=== PATIENT | female | born 1990 | race Caucasian/White ===

== ENCOUNTER 2017-09-30 07:06 | Inpatient (IN) | payer OTHER ==
[2017-09-30] MEDS ORDERED: Oxytocin/Normal Saline 30 UNIT/500 ML BAG IV SCH (08:15)
[2017-09-30] MEDS ORDERED: Lidocaine 1% 30 ML SDV INJECT PRN (09:34)
[2017-09-30] MEDS ORDERED: Acetaminophen 325 MG Tab PO PRN (09:34)
[2017-09-30] MEDS ORDERED: Lactated Ringers 500 ML IV ONE (09:34)
[2017-09-30] MEDS ORDERED: Misoprostol 400 MCG (4 X 100 MCG TAB) RECTAL PRN (09:34)
[2017-09-30] MEDS ORDERED: Methylergonovine 0.2 MG/1 ML Amp IM PRN (09:34)
[2017-09-30] MEDS ORDERED: Sodium Chloride 0.9% 10 ML Syringe FLUSH PRN ×2 (09:34→14:19)
[2017-09-30] MEDS ORDERED: Carboprost Tromethamine 250 MCG/1 ML Amp IM PRN (09:34)
[2017-09-30] MEDS ORDERED: Ondansetron 4 MG/2 ML SDV IV PRN (09:34)
[2017-09-30] MEDS: Lactated Ringers 1,000 ML IV SCH ×2 (10:19→13:32)
--- NOTE | 2017-09-30 10:58 | OBOUT ---
DATE: 09/30/2017 DATE AND TIME OF NST: Date: 09/30/2017. Time: 9:06 to 9:26. REASON FOR NST: 1. Intrauterine at 38 weeks, confirmed with 21 and 1/7 week ultrasound. 2. Premature rupture of membranes. 3. Group B strep negative. 4. Rh negative. 5. Impaired glucose tolerance. 6. G2, P1-0-0-1. NST INTERPRETATION: During this time period, heart tone baseline is approximately 145, and there are at least two 15 x 15-beats per minute accelerations, making this strip reactive. It is also noted to be reassuring. Tocometer reveals potential of 5 contractions felt by patient. ASSESSMENT: 1. Nonstress test, reactive and reassuring. 2. Tocometer with contractions. PLAN: Please see H and P for further details. This was done in conjunction, seen and agreed with RUSSELL Ewing. For the H and P, records were called for, reviewed and supplemented by patient history. Review of systems was otherwise reviewed and felt to be noncontributory other than leaking of fluid. Essentially, this is a G2, P1, who had vaginal leaking started about 4:00 a.m., woke her from sleep. Continued leaking, thereafter, described as clear fluid in nature soaking through clothing , associated with contractions that are now increasing in frequency and intensity to the point that they are felt every 2 to 5 minutes apart getting worse and felt in the lower abdomen. She denies any spotting or bleeding. She is GBS negative. She is Rh negative and has received RhoGAM. For further details, please see RUSSELL Ewing notes. At current time of dictation, Pitocin has been called for to be given, however, the OB floor has become very busy and we will start when it is safe to start in this patient. MOD /[id number]
[2017-09-30] MEDS ORDERED: fentaNYL 100 MCG/2 ML SDV ONE (11:53)
[2017-09-30] MEDS ORDERED: EPINEPHrine 1 MG/ML SDV ONE (11:53)
--- NOTE | 2017-09-30 13:04 | PN ---
DATE: 09/30/2017 SUBJECTIVE: The patient is comfortable, status post intrathecal. OBJECTIVE: heart tones are in the 140s range. There are some accelerations seen on the monitoring strip. Tocometer reveals contractions every 2 to 5 minutes, 4 to 5 minutes apart. Vaginal exam reveals her to be 4 cm, 80% effaced, -1 to -2 station, vertex suspected; and bag of water was felt with artificial rupture of membranes done after discussion with the patient, yielding copious amounts of clear fluid. IUPC was placed after that with discussion with the patient. Pitocin is currently at 6 milliunits per minute. ASSESSMENT: Intrauterine at 38 weeks, confirmed with 21 and 1/7-week ultrasound with premature rupture of membranes, suspect forebag rupture as there was gross rupture of membranes with early evaluation and then subsequent artificial rupture of membranes done as above. She is GBS negative and Rh negative with impaired glucose tolerance in a G2, P1-0-0-1, now status post intrathecal with Pitocin augmentation, artificial rupture of membranes, and IUPC placement. PLAN: We will follow, and we use closely increased Pitocin accordingly. Plans were discussed with the patient and her male partner. They understand and agree. [facility] /[id number]
--- NOTE | 2017-09-30 13:24 | PCM.PRNOTE ---
- Free Text/Narrative Note: Requested to provide analgesia to full term patient in severe pain. Upon entering the room, patient is lying on left side complaining of severe abdominal pain and discomfort. Procedure was discussed with patient including adverse outcomes and expectations. Pt consented to analgesia, SAB/IT. Pt placed into a sitting position. Landmarks for SAB/IT were identified and marked. Back was prepped with betadine x3. A sterile, transparent, fenestrated drape was applied. Excess betadine was removed. Using 3 mL of a 1% lidocaine solution, a skin wheel was placed at the L3/L4 interspace. A 24 ga (4 inch) Penc[place] spinal needle was inserted until positive for CSF. Negative for heme or paresthesias. Injected fentanyl 20 mcg, sufentanil 10 mcg, and 10.5 mg of a 0.75% bupivacaine solution with an epi wash. Pt was placed left lateral position for approximately 20 minutes. There were zero complications or adverse outcomes. Will continue to monitor.
--- NOTE | 2017-09-30 13:53 | HP ---
CHIEF COMPLAINT: Contractions and leakage of clear fluid from vagina beginning at 4 a.m. today. HISTORY OF PRESENT ILLNESS: This is a 27-year-old G2, P1-0-0-1, currently at 38 weeks and 0/7 days of her . Contractions started around 4 a.m. this morning that initially were 10 to 15 min apart and are now 5 min apart and have increased in intensity. The patient also observed leakage of clear fluid beginning at 4 a.m. This was enough to soak through multiple sets of clothing. She denies any traces of blood. These symptoms continued during her one-hour drive from [place]. movement has been good. She denies any fevers or chills, nausea, or vomiting, shortness of breath or chest pain, headaches or blurry vision, foul smelling discharge or vaginal bleeding. She reports some nasal congestion and sore throat at night in the last two days. She also reports bilateral upper extremity edema in the last couple of weeks as well as some transient numbness in her left hand that occurred yesterday that she believes is due to this edema . HISTORY: She has had one previous delivery. The baby weight was 3110 g delivered via spontaneous vaginal delivery by Dr. Mcdaniels at [facility] in [facility]. She denies any intrapartum or complications with that delivery . She denies any complications with this . She does report spotting in the first and second trimesters. PAST MEDICAL HISTORY: 1. Dysmenorrhea, treated with oral contraception. She denies any heart, lung, liver, or kidney disease. MEDICATIONS: vitamins. ALLERGIES: No known allergies. PAST SURGICAL HISTORY: Bilateral inguinal hernia repair as a child. FAMILY HISTORY: One grandmother with type 2 diabetes. Denies knowledge of any heart, lung, liver, or kidney disease that run in her family. SOCIAL HISTORY: The patient is here with the father of the baby, Patrick. 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 She has never smoked. She denies use of tobacco, alcohol, or any illicit drug use during this . REVIEW OF SYSTEMS: Pertinent positives and negatives as listed under the HPI. PHYSICAL EXAMINATION: General: Pleasant well-appearing female, who appears stated age. Vital Signs: Blood pressure 114/78, pulse 117 HEENT: Atraumatic. Anicteric sclera. Oropharynx without erythema, tonsils not enlarged. No sinus tenderness. No obvious deformities to external ears. Neck: Supple without adenopathy. No thyromegaly. Heart: Regular rate and rhythm. Lungs: Clear to auscultation bilaterally. Abdomen: Gravid, soft, nontender. Neurological: 2+ patellar reflexes, symmetric. No clonus. Cervical exam: 3 cm dilated, 50% effaced. Vertex suspected, high in pelvis. No bag of fluid appreciated. Extremities: Trace edema in the upper extremities bilaterally. No edema in lower extremities. No erythema or tenderness noted in any extremities. Skin: Warm and dry. TESTING: Blood type O negative, antibody screen positive, rubella immune, syphilis negative, hepatitis B negative, HIV negative, Gonorrhea and Chlamydia negative. TSH normal at 1.28. Hepatitis C negative. Wet prep negative for Trichomonas, clue cells, fungal elements, and budding yeast. One- hour glucose of 172 but passed 3 hour glucose tolerance test, impaired glucose tolerance. GBS negative. monitoring: heart tones tracing at 150 beats per minute at baseline, moderate [id number] variability, accelerations are noted. [place] tracing contractions every 4 to 6 minutes. LABORATORY DATA: CBC today showed hemoglobin at 11.3 and white blood cell at 10.1. ASSESSMENT: 1. 38 weeks intrauterine . 2. Gravid 2, para 1-0-0-1. 3. Blood type O negative, rubella immune, group B Streptococcus negative. 4. Premature rupture of membranes. 5. Impaired glucose tolerance. PLAN: Admit the patient to the Labor and Delivery floor. Start Pitocin for premature rupture of membranes. The patient's questions have been answered and she is in agreement with the above plan. seen and agreed with medical student. [facility] /[id number] [place]
[2017-09-30] MEDS ORDERED: Benzocaine/Menthol 20%-0.5% Spray 56 GM Canister TOP PRN (14:19)
[2017-09-30] MEDS ORDERED: Docusate Sodium 100 MG Cap PO PRN (14:19)
[2017-09-30] MEDS ORDERED: Oxytocin 10 Units/1 ML SDV IM PRN (14:19)
[2017-09-30] MEDS ORDERED: Zolpidem 5 MG Tab PO PRN (14:19)
[2017-09-30] MEDS ORDERED: Simethicone 80 MG Tab.Chew PO PRN (14:19)
[2017-09-30] MEDS: Ibuprofen 800 MG Tab PO PRN (19:50)
[2017-10-01] MEDS: Ibuprofen 800 MG Tab PO PRN ×3 (03:55→21:02)
--- NOTE | 2017-10-01 09:23 | DEL ---
DATE: 09/30/2017 PREOPERATIVE DIAGNOSES: 1. Intrauterine 38 weeks, confirmed with 21 and 1/7 week ultrasound. 2. Premature rupture of membranes, requiring Pitocin augmentation. 3. Group B Streptococcus negative. 4. Rh negative. 5. Impaired glucose tolerance. 6. G2, P1-0-0-1. POSTOPERATIVE DIAGNOSES: 1. Intrauterine 38 weeks, confirmed with 21 and 1/7 week ultrasound- delivered. 2. Premature rupture of membranes, requiring Pitocin augmentation. 3. Group B Streptococcus negative. 4. Rh negative. 5. Impaired glucose tolerance. 6. G2, P1-0-0-1. 7. Second-degree perineal abrasion, very superficial, nonbleeding, non- repaired after discussion with the patient. PROCEDURE PERFORMED: NST, Pitocin augmentation, artificial rupture of membranes, IUPC, and then subsequent spontaneous vaginal delivery on 09/30/2017. PODIATRIC PHYSICIAN: Maria C Temple MS-III. ANESTHESIA/ANALGESIA: The patient did receive an intrathecal in the first stage of labor. ESTIMATED BLOOD LOSS: 200 mL. FINDINGS: Male, scores and weight pending. SUMMARY OF EVENTS: The patient is a 27-year-old, G2, P1-0-0-1, intrauterine at 38 weeks, confirmed with 21 and 1/7 week ultrasound admitted with gross rupture of membranes/premature rupture of membranes. She subsequently underwent Pitocin augmentation, was re-evaluated, and was noted not to have significant cervical change, bulging bag of water was felt, and at that time artificial rupture of membranes done yielding copious amounts of clear fluid. This was after intrathecal was given. IUPC was placed at the same time and Pitocin augmentation was continued. Subsequently, she was found to be complete. I was called to the room, as well as Maria C Temple. We both donned sterile gown and gloves and then patient started pushing with contractions. She was in the second stage of labor. With pushing with contractions, vertex was delivered in EULA presentation, followed by rest of the infant, anterior and posterior shoulders without difficulty. Mouth and nares were suctioned. Cord was doubly clamped and cut. Infant was resuscitated on mother's abdomen, and then was subsequently taken over to the warmer. Then, approximately 10 mL cord blood was obtained for labs. Placenta then delivered with gentle cord traction and fundal massage within 10 minutes. Perineum, vagina and perirectal areas were then examined and noted to have a second-degree perineal superficial abrasion nonbleeding, non-repaired after discussion with the patient. Mother and are currently stable at the time of dictation. [facility] /[id number]
[2017-10-01] MEDS: Prenatal Multivitamin with Calcium/Folic Acid/Iron Tab PO SCH (09:41)
[2017-10-01] MEDS ORDERED: fentaNYL 100 MCG/2 ML SDV ITHECAL ONE (11:34)
[2017-10-01] MEDS ORDERED: EPINEPHrine 1 MG/ML SDV ONE (11:34)
--- NOTE | 2017-10-01 14:08 | PN ---
DATE: 10/01/2017 SUBJECTIVE: Nurses' note that she has been having some chills and body aches; the patient reports this. No fevers are noted; however, the patient describes being exposed to flu through daycare. The patient denies any foul-smelling discharge or pelvic pain. She does note the typical cramping with her . OBJECTIVE: Vital Signs: Temperature 100.1, heart rate 94, blood pressure 115/65, respiratory rate is 14. Lungs: Clear to auscultation bilaterally. No increased work of breathing. Heart: S1 and S2. Regular rate and rhythm. Extremities: No peripheral edema. No calf pain. Abdomen: Soft, nontender, and nondistended. Bowel sounds positive. Firm uterus, -2 below the umbilicus. No significant pain with palpation of the fundus. LABORATORY DATA: White cell count 7.7, hemoglobin 10.6, platelets 209. Pending is an influenza. ASSESSMENT AND PLAN: day #1, mother with milk coming in, currently having chills, no true fever, but has been exposed to influenza. We will order the rapid influenza and follow clinically and closely, thereafter, treat if positive and we will discuss isolation if need be at that time. The patient understands and agrees with the above treatment plan. If the influenza is negative, I suspect it is most likely milk letdown as she has only a minimal runny nose associated with her symptoms, possibly could be a viral illness as well, but we will follow clinically and closely. I did discuss good handwashing and hygiene around her . [facility] /[id number]
[2017-10-01] MEDS: Oseltamivir 75 MG Cap PO SCH ×2 (15:23→21:02)
[2017-10-02 08:22] VITALS: BP 106/71
[2017-10-02] MEDS: Oseltamivir 75 MG Cap PO SCH (09:22)
[2017-10-02] MEDS: Prenatal Multivitamin with Calcium/Folic Acid/Iron Tab PO SCH (09:23)
[2017-10-02] MEDS: Ibuprofen 800 MG Tab PO PRN (09:23)
--- NOTE | 2017-10-02 09:38 | PCM.PNPP ---
- General Info Date of Service: 10/02/17 ( PPD # 2) Functional Status: Reports: Pain Controlled, Tolerating Diet, Ambulating, Urinating - Review of Systems General: Reports: No Symptoms HEENT: Reports: No Symptoms Pulmonary: Reports: No Symptoms Cardiovascular: Reports: No Symptoms Gastrointestinal: Reports: No Symptoms Genitourinary: Reports: No Symptoms Musculoskeletal: Reports: No Symptoms Skin: Reports: No Symptoms Neurological: Reports: No Symptoms Psychiatric: Reports: No Symptoms - General Info Date of Service: 10/02/17 ( PPD # 2) - Patient Data Vital Signs - Most Recent: Last Vital Signs Temp 98.2 F 10/02/17 08:00 Pulse 79 10/02/17 08:00 Resp 16 10/02/17 08:00 BP 106/71 10/02/17 08:00 Pulse Ox 98 10/02/17 08:00 Weight - Most Recent: 181 lb Lab Results - Last 24 Hours: Laboratory Results - last 24 hr 10/01/17 Range/Units 06:08 Blood Type O NEGATIVE Gel Antibody Screen Positive Rhogam Indicated Yes, baby rh pos H Micro Results - Last 24 Hours: Microbiology 10/01/17 13:40 Influenza Type A Antigen Screen - Final Nasopharyngeal Swab - Nare, Right Positive Influenza A Ag Influenza Type B Antigen Screen - Final NEGATIVE INFLUENZA B VIRUS AG Med Orders - Current: Current Medications Acetaminophen (Tylenol) 650 mg PO Q4H PRN PRN Reason: Pain (Mild 1-3) and fever Benzocaine/Menthol (Dermoplast Pain Relief [place]) 0 gm TOP Q4H PRN PRN Reason: Perineal comfort measures Carboprost Tromethamine (Hemabate Ds) 250 mcg IM ASDIRECTED PRN PRN Reason: HEMORRHAGE Docusate Sodium (Colace) 100 mg PO BID PRN PRN Reason: Constipation Last Admin: 10/01/17 09:41 Dose: 100 mg Oxytocin/Sodium Chloride (Pitocin In Ns 30 Unit/500 Ml) 30 unit in 500 mls @ 2 mls/hr IV TITRATE KATTY; 2 MUNITS/MIN PRN Reason: Protocol Last Titration: 09/30/17 16:28 Dose: 0 mls/hr Lactated Ringer's (Ringers, Lactated) 1,000 mls @ 125 mls/hr IV ASDIRECTED KATTY Last Admin: 09/30/17 13:32 Dose: 125 mls/hr Ibuprofen (Motrin) 800 mg PO Q8H PRN PRN Reason: Mild Pain or Fever Last Admin: 10/02/17 09:23 Dose: 800 mg Lidocaine HCl (Xylocaine-Mpf 1%) 10 ml INJECT ASDIRECTED PRN PRN Reason: Perineal Repair Methylergonovine Maleate (Methergine) 0.2 mg IM ASDIRECTED PRN PRN Reason: Hemorrhage Misoprostol (Cytotec) 800 mcg RECTAL ASDIRECTED PRN PRN Reason: Hemorrhage Ondansetron HCl (Zofran) 4 mg IV Q4H PRN PRN Reason: Nausea/Vomiting Last Admin: 09/30/17 11:47 Dose: 4 mg Oseltamivir Phosphate (Tamiflu) 75 mg PO BID [facility] Stop: 10/05/17 21:01 Last Admin: 10/02/17 09:22 Dose: 75 mg Oxytocin (Pitocin) 10 unit IM ONETIME PRN PRN Reason: Bleeding Prenat Multivit/Becker/Iron/Folic Ac ( Plus Iron) 1 each PO DAILY [facility] Last Admin: 10/02/17 09:23 Dose: 1 each Simethicone (Simethicone) 80 mg PO Q4H PRN PRN Reason: Gas Sodium Chloride (Saline Flush) 10 ml FLUSH ASDIRECTED PRN PRN Reason: Keep Vein Open Sodium Chloride (Saline Flush) 10 ml FLUSH ASDIRECTED PRN PRN Reason: Keep Vein Open Zolpidem Tartrate (Ambien) 5 mg PO BEDTIME PRN PRN Reason: Insomnia Discontinued Medications Epinephrine HCl (Adrenalin) Confirm Administered Dose 1 mg .ROUTE .STK-MED ONE Stop: 09/30/17 11:54 Last Admin: 09/30/17 22:10 Dose: Not Given Epinephrine HCl (Adrenalin) 0.1 mg .XX .STK-MED ONE Stop: 10/01/17 11:35 Fentanyl (Sublimaze) Confirm Administered Dose 100 mcg .ROUTE .STK-MED ONE Stop: 09/30/17 11:54 Last Admin: 09/30/17 22:10 Dose: Not Given Fentanyl (Sublimaze) 20 mcg ITHECAL .STK-MED ONE Stop: 10/01/17 11:35 Lactated Ringer's (Ringers, Lactated) 500 mls @ 500 mls/hr IV .BOLUS ONE Stop: 09/30/17 10:33 Last Admin: 09/30/17 12:09 Dose: 500 mls/hr Sufentanil Citrate (Sufenta) Confirm Administered Dose 50 mcg .ROUTE .STK-MED ONE Stop: 09/30/17 11:54 Last Admin: 09/30/17 22:10 Dose: Not Given Sufentanil Citrate (Sufenta) 10 mcg ITHECAL .STK-MED ONE Stop: 10/01/17 11:35 - Interaction Disposition, : [place] in Room with Family Interaction: Holding Infant Infant Feeding: Breastfed ; Nursed Well Support Person: - Recovery Exam Fundal Tone: Firm Fundal Level: 3 Fingerbreadths Below Umbilicus Fundal Placement: Midline Lochia Amount: Small Lochia Color: Rubra/Red Perineum Description: Intact, Minimal Bruising/Swelling Episiotomy/Laceration: None Bladder Status: Nonpalpable, Voiding Urinary Elimination: Voided - Exam General: Alert, Oriented, Cooperative, No Acute Distress Neck: Supple Lungs: Clear to Auscultation, Normal Respiratory Effort Cardiovascular: Regular Rate, Regular Rhythm, No Murmurs GI/Abdominal Exam: Normal Bowel Sounds, Soft, Non-Tender Extremities: Normal Inspection, Normal Range of Motion, Non-Tender, No Pedal Edema Skin: Warm, Dry, Intact Neurological: No New Focal Deficit, Normal Gait, Normal Speech, Normal Tone Psy/Mental Status: Alert, Normal Affect, Normal Mood - Problem List Review Problem List Initiated/Reviewed/Updated: Yes - My Orders Last 24 Hours: My Active Orders 10/02/17 09:29 Ready for Discharge [RC] PER UNIT ROUTINE - Assessment Assessment:: PPD # 2 S/P Hx of Influenza A doing better on Tamiflu - Plan Plan:: Discharge to home Follow-up with Dr. Mcdaniels at recheck Tamiflu 1 tab bid po X 5 days Ibuprofen for pain
--- NOTE | 2017-10-04 07:22 | PN ---
DATE: 10/01/2017 SUBJECTIVE: The patient still describes some chills and aches. She has family members visiting. OBJECTIVE: Rapid influenza test is positive for influenza A antigen. ASSESSMENT AND PLAN: Influenza A, day #1, with chills, sweats, and body aches starting within the last 24 hours with a mother. Did discuss with the patient starting her on Tamiflu. Precautions will be started per nursing staff, and charge nurse has been notified in regard to this as well as head nurse. Did discuss with the patient watching closely for household numbers with fevers as well as her other daughter, Priyanka, as well as watching her baby for a fever. We will continue to follow her baby as well. Dr. Mart who is covering over the weekend will be notified of these results and treatment plans. [facility] /[id number]
--- NOTE | 2017-10-04 07:29 | DISCH ---
INDICATION FOR ADMISSION: Ms. Burr is a 27-year-old, 2, para 1-0-0-1 female at 38 weeks gestation who reported to Labor and Delivery with increasing force and frequency of contractions along with leakage of clear fluid. She did have impaired glucose tolerance in her and on admission, she did have nasal congestion, sore throat, body aches, and edema. She tolerated her labor quite well. She underwent Pitocin augmentation and she did have a forebag that was noted. This was artificially ruptured. She had an intrauterine pressure catheter placed. Once she got to complete, she started pushing and she had a normal spontaneous vaginal delivery of a viable male weighing 7 pounds 9 ounces with scores of 6 and 8 over small abrasion that did not have to be repaired. She did quite well with her recovery. She did have a fever and since she had been exposed to influenza, influenza A was checked and it came back positive, so she was placed on Tamiflu twice a day for 5 days and she wore mask throughout the rest of her hospital stay and she did improve. She had no fever or chills and since she felt good and was feeling better, she was discharged to home on day #2. She had minimal lochia. She tolerated her diet well and ambulated quite well. No other complications occurred throughout her hospital stay. LABORATORY AND DIAGNOSTIC STUDIES: On 09/30/2017; WBC 10.1, hemoglobin 11.3, hematocrit 34.1, platelet count 249,000. On 10/01/2017; WBC 7.7, hemoglobin 10.6, hematocrit 33.3, and platelet count 209,000. Influenza A positive. DISCHARGE INSTRUCTIONS: 1. Discharged to home. 2. Follow up with Dr. Mcdaniels in next visit for recheck. 3. No douching, tampons, intercourse for 6 weeks. 4. Discharge instructions including activity, followup, medications, diet and wound care were discussed with the patient. She understands these and is willing to comply with these. 5. Tamiflu 1 tablet twice a day until all the medication is gone for a total of 5 days. 6. Ibuprofen 800 mg 1 tab 3 times a day. 7. Tylenol p.r.n. DISCHARGE DIAGNOSES: 1. A 38 weeks intrauterine . 2. Premature rupture of membranes. 3. Early labor. 4. Pitocin augmentation. 5. Impaired glucose tolerance. 6. Influenza A. 7. Normal spontaneous vaginal delivery of a viable male weighing 7 pounds 9 ounces with scores of 6 at 1 minute, 8 at 5 minutes. 8. Intrathecal anesthesia. MOD /[id number]
== END 2017-10-02 12:20 | disposition home or self-care (01) | DRG 775 ==
LOC: DL.OBCHECK 07:06 → DL.OB 07:56 → OBSVTOIN 14:00 → DL.OB 14:00 → DL.MS 10-01 16:01
PROVIDERS: ADMIT Family Medicine; ATTEND Family Medicine
PROC: 10E0XZZ Delivery of Products of Conception, External Approach (ICD-10-PCS; principal; 2017-09-30)
PROC: 10907ZC Drainage of Amniotic Fluid, Therapeutic from Products of Conception, Via Natural or Artificial Opening (ICD-10-PCS; 2017-09-30)
PROC: 10H07YZ Insertion of Other Device into Products of Conception, Via Natural or Artificial Opening (ICD-10-PCS; 2017-09-30)
DX: O42.02 Full-term premature rupture of membranes, onset of labor within 24 hours of rupture (principal); J09.X2 Influenza due to identified novel influenza A virus with other respiratory manifestations; O99.814 Abnormal glucose complicating childbirth; O71.82 Other specified trauma to perineum and vulva; Z3A.38 38 weeks gestation of pregnancy; Z37.0 Single live birth
CPT/HCPCS: 36415; 59409; 85027; 85461; 86850; 86900; 86901; 87804; A9270-GY; J0171; J2405; J2590; J2790; J3010; J7120